=== PATIENT | male | born 1955 | race African-American/Black ===

== ENCOUNTER → 2019-09-07 | Day surgery (SDC) | payer OTHER, MEDICARE ==
[2019-09-03 13:35] LABS: BASOPHILS # (AUTO) 0.1 (0.0-0.1); BASOPHILS % 1.1 % (0.0-1.0); EOSINOPHILS # (AUTO) 0.2 (0.0-0.4); EOSINOPHILS % 4.3 % (0.0-6.0); HEMATOCRIT 43.2 % (38.2-49.6); HEMOGLOBIN 14.4 g/dL (14.0-18.0); LYMPHOCYTES # (AUTO) 3.2 (1.0-3.2); LYMPHOCYTES % 60.1 % (18.0-39.1); MEAN CORPUSCULAR HEMOGLOBIN 26.9 pg (28-32); MEAN CORPUSCULAR HGB CONC 33.3 g/dL (31-35); MEAN CORPUSCULAR VOLUME 80.6 fL (81-99); MONOCYTES # (AUTO) 0.5 (0.2-0.8); MONOCYTES % 9.6 % (4.4-11.3); NEUTROPHILS # (AUTO) 1.3 (2.1-6.9); NEUTROPHILS % 24.9 % (38.7-80.0); PLATELET COUNT 212 x10e3/uL (140-360); RED BLOOD COUNT 5.36 x10e6/uL (4.3-5.7); RED CELL DISTRIBUTION WIDTH 14.5 % (11.7-14.4)
[2019-09-03 13:42] LABS: INR 0.92; PROTHROMBIN TIME 12.9 seconds (11.9-14.5)
[2019-09-03 13:43] LABS: PARTIAL THROMBOPLASTIN TIME 27.5 seconds (23.8-35.5)
[2019-09-03 13:50] LABS: ALANINE AMINOTRANSFERASE 42 IU/L (0-55); ALBUMIN 4.1 g/dL (3.5-5.0); ALBUMIN/GLOBULIN RATIO 1.1 (0.8-2.0); ALKALINE PHOSPHATASE 54 IU/L (40-150); ANION GAP 10.1 mmol/L (8-16); BLOOD UREA NITROGEN 18 mg/dL (7-26); BUN/CREATININE RATIO 16 (6-25); CALCIUM 9.8 mg/dL (8.4-10.2); CARBON DIOXIDE 30 mmol/L (22-29); CHLORIDE 103 mmol/L (98-107); CREATININE, SERUM 1.13 mg/dL (0.72-1.25); EST GLOMERULAR FILTRATION RATE > 60 ML/MIN (60-); GLUCOSE 107 mg/dL (74-118); POTASSIUM 4.1 mmol/L (3.5-5.1); SODIUM 139 mmol/L (136-145)
--- NOTE | 2019-09-03 14:00 | Diagnostic Imaging Report ---
Chest, PA and lateral. History: Preoperative evaluation for left foot surgery. Comparison: None available. Discussion: The cardiomediastinal silhouette and pulmonary vasculature are within normal limits. The lungs are clear without evidence of consolidation or effusion. There are no acute osseous abnormalities. IMPRESSION: No radiographic evidence of acute cardiopulmonary abnormality. Signed by: Bernard Hagen MD on 09/03/2019 1:57 PM
[~2019-09-07] MED LIST: BETAMETHASONE DISODIUM PHOS 6 MG/ML VIAL ONE; BUPIVACAINE HCL 0.5% INJ 30 ML VIAL INJ ONE; CEFAZOLIN SOD 1 GM/NS 50ML 100 ML IV ONE; DEXAMETHASONE SOD PHOS INJ 4 MG/ML VIAL ONE; DIOVAN160 MG PO; FENTANYL CITRATE/PF 100MCG/2 ML INJ ONE; KETOROLAC TROMETHAMINE 30 MG/ML VIAL ONE; LIDOCAINE HCL 1% LOCAL INJ 20 ML VIAL ONE; LIDOCAINE HCL 2% LOCAL INJ 5 ML SDV VIAL INJ ONE; MIDAZOLAM HCL 2 MG/2 ML VIAL ONE; MUPIROCIN 2% OINT 22 GM TUBE ONE; ONDANSETRON HCL INJ 2MG/ML 2ML 2 MG/ML VIAL ONE; PROPOFOL IV EMULSION 10 MG/ML 20 ML VIAL ONE; SEVOFLURANE INHAL SOLN 250 ML PEN BTL ONE
--- OUTSIDE RECORDS SUMMARY | 2019-09-07 05:22 | XMS REPORT ---
[facility] Address Unknown Phone Unavailable Care Team Providers Care Salon Leader Name Role Phone SOLITARIO HERR Unavailable Unavailable KATHY MARCELO Unavailable Unavailable Problems This patient has no known problems. Allergies, Adverse Reactions, Alerts This patient has no known allergies or adverse reactions. Medications This patient has no known medications. Results Test Description Test Time Test Comments Text Results Atomic Results Result Comments CHEST 2 VIEWS 2019-09-03 13:56:00 [place] [address] Patient Name: VIDHI GALICIA MR #: [id number] : 1955 Age/Sex: 64/M Req #: [id number] Adm Physician: Ordered by: SOLITARIO HERR DPM Report #: [id number] Location: OR Room/Bed: Procedure: [id number] DX/CHEST 2 VIEWS Exam Date: 09/03/19 Exam Time: 1325 REPORT STATUS: Signed Chest, PA and lateral. History: Preoperative evaluation for left foot surgery. Comparison: None available. Discussion: The cardiomediastinal silhouette and pulmonary vasculature are within normal limits. The lungs are clear without evidence of consolidation or effusion. There are no acute osseous abnormalities. IMPRESSION: No radiographic evidence of acute cardiopulmonary abnormality. Signed by: Bernard Linton MD on 09/03/2019 1:57 PM Dictated By: BERNARD LINTON MD [id number] Transcribed By: BRIDGETT on 09/03/19 1357 COPY TO: SOLITARIO HERR DPM POCT-GLUCOSE METER 2017-08-04 12:31:00 POC-GLUCOSE METER (BEAKER) (test stzq=7081) 108 mg/dL 70-[address] [facility] [address] [facility] [address] POCT-GLUCOSE [id number] 08:09:00* Test Item Value Reference Range Comments POC-GLUCOSE METER (BEAKER) (test dnwx=0622) 126 mg/dL 70-[address] [facility] [address] [facility] [address] RAD, CHEST, 1 VIEW, NON [id number] 07:49:00while patient is intubated or has chest tubes.Reason for exam:->s/p CT surgeryShould this be performed at the bedside?->YesFINAL REPORT HISTORY : s/p CT surgery. Comparison: 08/03/2017 Comment: Single portable view of the chest was obtained. The cardiac silhouette size is enlarged. Support lines and tubes are unchanged. No pneumothorax is seen. There is some mild pulmonary venous congestion. Interstitial prominence may represent interstitial edema. There is elevation of the right hemidiaphragm. There is a small right-sided pleural effusion. Linear density in the right midlung most likely represents linear subsegmental atelectasis versus scarring. Superimposed pneumonitis cannot be entirely excluded. Close follow-up is recommended. An arc-like radiodensity is seen over the heart. Findings should be correlated with the patient's procedural history. Signed: Radha Palacios MDReport Verified Date/Time: 08/04/2017 07:49:21 Reading Location: [facility] Diagnostic Imaging Reading Room - [place] [id number] C METABOLIC [id number] 05:41:00* Test Item Value Reference Range Comments SODIUM (BEAKER) (test hwbn=477) 137 meq/L 136-145 POTASSIUM (BEAKER) (test xgnh=618) 4.0 meq/L 3.5-5.1 CHLORIDE (BEAKER) (test juiw=658) 105 meq/L 98-107 CO2 (BEAKER) (test urbc=612) 24 meq/L 22-29 BLOOD UREA NITROGEN (BEAKER) (test lnqa=675) 20 mg/dL 7-21 CREATININE (BEAKER) (test nfdr=009) 0.79 mg/dL 0.57-1.25 GLUCOSE RANDOM (BEAKER) (test svlx=550) 111 mg/dL 70-105 CALCIUM (BEAKER) (test ednx=965) 8.4 mg/dL 8.4-10.2 EGFR (BEAKER) (test dcyr=7379) 120 mL/min/1.73 sq m ESTIMATED GFR IS NOT ACCURATE CREATININE CLEARANCE IN PREDICTING GLOMERULAR FILTRATION RATE. ESTIMATED GFR IS NOT APPLICABLE FOR DIALYSIS PATIENTS. CBC W/PLT COUNT & AUTO [id number] 04:59:00* Test Item Value Reference Range Comments WHITE BLOOD CELL COUNT (BEAKER) (test zrwq=728) 9.6 K/ L 3.5-10.5 RED BLOOD CELL COUNT (BEAKER) (test wjyx=286) 4.05 M/ L 4.63-6.08 HEMOGLOBIN (BEAKER) (test tujw=107) 10.7 GM/DL 13.7-17.5 HEMATOCRIT (BEAKER) (test qido=412) 33.1 % 40.1-51.0 MEAN CORPUSCULAR VOLUME (BEAKER) (test bxul=859) 81.7 fL 79.0-92.2 MEAN CORPUSCULAR HEMOGLOBIN (BEAKER) (test ameo=029) 26.4 pg 25.7-32.2 MEAN CORPUSCULAR HEMOGLOBIN CONC (BEAKER) (test cysn=367) 32.3 GM/DL 32.3-36.5 RED CELL DISTRIBUTION WIDTH (BEAKER) (test diot=135) 14.9 % 11.6-14.4 PLATELET COUNT (BEAKER) (test tqsz=746) 127 K/CU MM 150-450 MEAN PLATELET VOLUME (BEAKER) (test jmgy=522) 11.1 fL 9.4-12.4 NUCLEATED RED BLOOD CELLS (BEAKER) (test ywxn=244) 0 /100 WBC 0-0 NEUTROPHILS RELATIVE PERCENT (BEAKER) (test jbsa=762) 66 % LYMPHOCYTES RELATIVE PERCENT (BEAKER) (test zbpp=491) 22 % MONOCYTES RELATIVE PERCENT (BEAKER) (test wcnp=191) 11 % EOSINOPHILS RELATIVE PERCENT (BEAKER) (test gner=739) 1 % BASOPHILS RELATIVE PERCENT (BEAKER) (test itgi=845) 0 % NEUTROPHILS ABSOLUTE COUNT (BEAKER) (test kqcu=680) 6.38 K/ L 1.78-5.38 LYMPHOCYTES ABSOLUTE COUNT (BEAKER) (test mvgu=545) 2.10 K/ L 1.32-3.57 MONOCYTES ABSOLUTE COUNT (BEAKER) (test qmqx=398) 1.01 K/ L 0.30-0.82 EOSINOPHILS ABSOLUTE COUNT (BEAKER) (test hbsf=660) 0.07 K/ L 0.04-0.54 BASOPHILS ABSOLUTE COUNT (BEAKER) (test knqb=060) 0.02 K/ L 0.01-0.08 IMMATURE GRANULOCYTES-RELATIVE PERCENT (BEAKER) (test cnec=4760) 0 % 0-1 BASIC METABOLIC [id number] 07:47:00* Test Item Value Reference Range Comments SODIUM (BEAKER) (test idqk=135) 140 meq/L 136-145 POTASSIUM (BEAKER) (test drli=454) 4.6 meq/L 3.5-5.1 CHLORIDE (BEAKER) (test datd=831) 106 meq/L 98-107 CO2 (BEAKER) (test kehn=683) 28 meq/L 22-29 BLOOD UREA NITROGEN (BEAKER) (test ridg=681) 22 mg/dL 7-21 CREATININE (BEAKER) (test wwdn=873) 0.82 mg/dL 0.57-1.25 GLUCOSE RANDOM (BEAKER) (test urot=457) 130 mg/dL 70-105 CALCIUM (BEAKER) (test plrz=067) 8.6 mg/dL 8.4-10.2 EGFR (BEAKER) (test ffze=5975) 115 mL/min/1.73 sq m ESTIMATED GFR IS NOT ACCURATE CREATININE CLEARANCE IN PREDICTING GLOMERULAR FILTRATION RATE. ESTIMATED GFR IS NOT APPLICABLE FOR DIALYSIS PATIENTS. CBC W/PLT COUNT & AUTO [id number] 07:09:00* Test Item Value Reference Range Comments WHITE BLOOD CELL COUNT (BEAKER) (test eofb=038) 10.7 K/ L 3.5-10.5 RED BLOOD CELL COUNT (BEAKER) (test wtoo=405) 4.11 M/ L 4.63-6.08 HEMOGLOBIN (BEAKER) (test wzkx=920) 10.9 GM/DL 13.7-17.5 HEMATOCRIT (BEAKER) (test zxbv=745) 33.6 % 40.1-51.0 MEAN CORPUSCULAR VOLUME (BEAKER) (test ahzm=913) 81.8 fL 79.0-92.2 MEAN CORPUSCULAR HEMOGLOBIN (BEAKER) (test laft=499) 26.5 pg 25.7-32.2 MEAN CORPUSCULAR HEMOGLOBIN CONC (BEAKER) (test vtuo=715) 32.4 GM/DL 32.3-36.5 RED CELL DISTRIBUTION WIDTH (BEAKER) (test sfvn=426) 15.4 % 11.6-14.4 PLATELET COUNT (BEAKER) (test cpct=322) 99 K/CU MM 150-450 MEAN PLATELET VOLUME (BEAKER) (test zuyh=478) 10.4 fL 9.4-12.4 NUCLEATED RED BLOOD CELLS (BEAKER) (test bxuo=804) 0 /100 WBC 0-0 NEUTROPHILS RELATIVE PERCENT (BEAKER) (test fbko=811) 75 % LYMPHOCYTES RELATIVE PERCENT (BEAKER) (test hdzl=940) 15 % MONOCYTES RELATIVE PERCENT (BEAKER) (test ohnh=221) 10 % EOSINOPHILS RELATIVE PERCENT (BEAKER) (test xmsf=249) 0 % BASOPHILS RELATIVE PERCENT (BEAKER) (test fxkl=228) 0 % NEUTROPHILS ABSOLUTE COUNT (BEAKER) (test tqii=929) 7.93 K/ L 1.78-5.38 LYMPHOCYTES ABSOLUTE COUNT (BEAKER) (test egir=511) 1.56 K/ L 1.32-3.57 MONOCYTES ABSOLUTE COUNT (BEAKER) (test ukjh=219) 1.09 K/ L 0.30-0.82 EOSINOPHILS ABSOLUTE COUNT (BEAKER) (test kpna=804) 0.00 K/ L 0.04-0.54 BASOPHILS ABSOLUTE COUNT (BEAKER) (test ymbb=745) 0.01 K/ L 0.01-0.08 IMMATURE GRANULOCYTES-RELATIVE PERCENT (BEAKER) (test kcqf=9123) 1 % 0-1 RAD, CHEST, 1 VIEW, NON [id number] 03:58:00while patient is intubated or has chest tubes.Reason for exam:->s/p CT surgeryShould this be performed at the bedside?->YesFINAL REPORT RAD, CHEST, 1 VIEW, NON DEPT INDICATION: s/p CT surgery COMPARISON: Prior day's exam FINDINGS: Portable frontal view of the chest. IMPRESSION: Support Lines: Right IJ approach Rowdy- Carlos central venous catheter has been removed. Thoracic drainage catheters are stable. Lungs and pleura: Scattered subsegmental atelectasis again noted. Trace basilar right pneumothorax.Heart and mediastinum: Stable enlargement of the cardiac silhouette. Valvular surgical changes again noted.Additional findings: None. Signed: JR Murray Robert MDReport Verified Date/Time: 08/03/2017 03:58:50 Reading Location: [address] Reading Room , CHEST, 1 VIEW, NON [id number] 05:36:00while patient is intubated or has chest tubes.Reason for exam:->s/p CT surgeryShould this be performed at the bedside?->YesFINAL REPORT Chest one view. Clinical history: s/p CT surgery Comparison: Chest radiograph 08/01/2017 to 30 3:00 PM Technique: A single frontal view of the chest was obtained. Findings/Impression:There has been interval removal of endotracheal and feeding tubes. There is a right IJ Rowdy-Carlos catheter with tip in the left pulmonary artery. There is a tube or drain overlying the right medial lung base. The heart is enlarged. The aorta is uncoiled. There are low lung volumes. There is discoid atelectasis in the right midlung, left upper lobe and left lower lobe. There is no focal pulmonary consolidation or definite pleural effusion. There is no pneumothorax. Signed: Isabella Reynoso Verified Date/Time: 08/02/2017 05:36:43 Reading Location: [facility] C013[facility] Reading Room C METABOLIC [id number] 05:08:00* Test Item Value Reference Range Comments SODIUM (BEAKER) (test cvnp=637) 140 meq/L 136-145 POTASSIUM (BEAKER) (test ztwy=948) 4.0 meq/L 3.5-5.1 CHLORIDE (BEAKER) (test zrso=794) 107 meq/L 98-107 CO2 (BEAKER) (test krvl=604) 23 meq/L 22-29 BLOOD UREA NITROGEN (BEAKER) (test thfu=209) 21 mg/dL 7-21 CREATININE (BEAKER) (test tvjx=460) 0.99 mg/dL 0.57-1.25 GLUCOSE RANDOM (BEAKER) (test kcuc=204) 153 mg/dL 70-105 CALCIUM (BEAKER) (test fjwu=789) 8.4 mg/dL 8.4-10.2 EGFR (BEAKER) (test ccgs=5493) 92 mL/min/1.73 sq m ESTIMATED GFR IS NOT ACCURATE CREATININE CLEARANCE IN PREDICTING GLOMERULAR FILTRATION RATE. ESTIMATED GFR IS NOT APPLICABLE FOR DIALYSIS PATIENTS. [id number] 04:53:00* Test Item Value Reference Range Comments MAGNESIUM (BEAKER) (test gdoj=269) 2.1 mg/dL 1.6-2.6 OXYGEN SATURATION, [id number] 04:25:00* Test Item Value Reference Range Comments O2 SATURATION (MEASURED) (BEAKER) (test zlzb=4485) 69.2 % CBC W/PLT COUNT & AUTO [id number] 04:17:00* Test Item Value Reference Range Comments WHITE BLOOD CELL COUNT (BEAKER) (test acmm=608) 10.9 K/ L 3.5-10.5 RED BLOOD CELL COUNT (BEAKER) (test bdkx=256) 4.10 M/ L 4.63-6.08 HEMOGLOBIN (BEAKER) (test bxpw=013) 11.0 GM/DL 13.7-17.5 HEMATOCRIT (BEAKER) (test mqyp=100) 33.6 % 40.1-51.0 MEAN CORPUSCULAR VOLUME (BEAKER) (test neib=488) 82.0 fL 79.0-92.2 MEAN CORPUSCULAR HEMOGLOBIN (BEAKER) (test gssl=123) 26.8 pg 25.7-32.2 MEAN CORPUSCULAR HEMOGLOBIN CONC (BEAKER) (test povq=707) 32.7 GM/DL 32.3-36.5 RED CELL DISTRIBUTION WIDTH (BEAKER) (test ltxi=292) 15.3 % 11.6-14.4 PLATELET COUNT (BEAKER) (test euwi=123) 106 K/CU MM 150-450 MEAN PLATELET VOLUME (BEAKER) (test boog=417) 10.3 fL 9.4-12.4 NUCLEATED RED BLOOD CELLS (BEAKER) (test wsiy=372) 0 /100 WBC 0-0 NEUTROPHILS RELATIVE PERCENT (BEAKER) (test tstt=478) 79 % LYMPHOCYTES RELATIVE PERCENT (BEAKER) (test xmhu=191) 11 % MONOCYTES RELATIVE PERCENT (BEAKER) (test xcrq=520) 10 % EOSINOPHILS RELATIVE PERCENT (BEAKER) (test vtqr=381) 0 % BASOPHILS RELATIVE PERCENT (BEAKER) (test oxoh=019) 0 % NEUTROPHILS ABSOLUTE COUNT (BEAKER) (test poms=857) 8.64 K/ L 1.78-5.38 LYMPHOCYTES ABSOLUTE COUNT (BEAKER) (test kfcn=061) 1.15 K/ L 1.32-3.57 MONOCYTES ABSOLUTE COUNT (BEAKER) (test czao=891) 1.10 K/ L 0.30-0.82 EOSINOPHILS ABSOLUTE COUNT (BEAKER) (test fhov=319) 0.00 K/ L 0.04-0.54 BASOPHILS ABSOLUTE COUNT (BEAKER) (test dnkw=559) 0.01 K/ L 0.01-0.08 IMMATURE GRANULOCYTES-RELATIVE PERCENT (BEAKER) (test vtxy=8561) 0 % 0-1 CALCIUM, [id number] 16:03:00* Test Item Value Reference Range Comments CALCIUM IONIZED (BEAKER) (test tvhd=974) 0.89 mmol/L 1.12-1.27 PH, BLOOD (BEAKER) (test myfy=1153) 7.42 BLOOD GAS, [id number] 16:03:00* Test Item Value Reference Range Comments PH ARTERIAL (BEAKER) (test nsyk=527) 7.40 7.35-7.45 PCO2 ARTERIAL (BEAKER) (test nrgn=595) 42 mmHg 35-45 PO2 ARTERIAL (BEAKER) (test otkq=279) 149 mmHg 80-90 O2 SATURATION ARTERIAL (BEAKER) (test hktr=683) 98.8 % 96.0-97.0 HCO3 ARTERIAL (BEAKER) (test qqlq=529) 25 mmol/L 21-29 BASE EXCESS ARTERIAL (BEAKER) (test cmiw=393) 0.5 mmol/L -2.0-3.0 PATIENT TEMPERATURE (BEAKER) (test ulpn=8084) 38.3 C FIO2 (BEAKER) (test erfq=9194) 40.0 % GLUCOSE-STAT [id number] 16:03:00* Test Item Value Reference Range Comments GLUCOSE RANDOM (BEAKER) (test sfma=001) 161 mg/dL 70-110 HGB/HCT (H&H) - STAT [id number] 16:03:00* Test Item Value Reference Range Comments HEMOGLOBIN (BEAKER) (test ujky=160) 12.5 g/dL 13.0-16.8 HEMATOCRIT (BEAKER) (test bpgo=989) 37.0 % 40.0-50.0 SODIUM NA-STAT [id number] 16:02:00* Test Item Value Reference Range Comments SODIUM (BEAKER) (test kbzv=791) 139 meq/L 135-148 POTASSIUM-STAT [id number] 16:02:00* Test Item Value Reference Range Comments POTASSIUM (BEAKER) (test czsv=504) 4.8 meq/L 3.6-5.5 RAD, CHEST, 1 VIEW, NON [id number] 15:20:00Reason for exam:-> intubationShould this be performed at the bedside?->YesFINAL REPORT Chest One view: Reason for exam: Intubation Comparison Study: Chest x- ray, yesterday Discussion: An ET tube is identified with tip 4 cm above the rjei. A right IJ Rowdy-Carlos catheter is noted with tip in the proximal left pulmonary artery. Drains/thoracostomy tubes are present along with a nasogastric tube. Scattered subsegmental atelectasis is seen. There is no pleural effusion or pneumothorax. The cardiac silhouette is slightly enlarged. Impression: Support lines, described above. No pneumothorax. Signed: Emmanuel Lilly MDReport Verified Date/Time: 08/01/2017 15:20:44 Reading Location: [address] Consult Reading Room C METABOLIC [id number] 14:14:00* Test Item Value Reference Range Comments SODIUM (BEAKER) (test yedp=610) 140 meq/L 136-145 POTASSIUM (BEAKER) (test cdlv=469) 4.8 meq/L 3.5-5.1 Specimen slightly hemolyzed CHLORIDE (BEAKER) (test obvm=966) 108 meq/L 98-107 CO2 (BEAKER) (test hrjt=963) 21 meq/L 22-29 BLOOD UREA NITROGEN (BEAKER) (test iibn=896) 19 mg/dL 7-21 CREATININE (BEAKER) (test yaps=225) 1.16 mg/dL 0.57-1.25 Specimen slightly hemolyzed GLUCOSE RANDOM (BEAKER) (test wfat=508) 137 mg/dL 70-105 CALCIUM (BEAKER) (test yzmo=664) 7.9 mg/dL 8.4-10.2 EGFR (BEAKER) (test uown=9392) 77 mL/min/1.73 sq m ESTIMATED GFR IS NOT ACCURATE CREATININE CLEARANCE IN PREDICTING GLOMERULAR FILTRATION RATE. ESTIMATED GFR IS NOT APPLICABLE FOR DIALYSIS PATIENTS. [id number] 14:10:00* Test Item Value Reference Range Comments PROTIME (BEAKER) (test bhda=631) 16.6 seconds 11.7-14.7 INR (BEAKER) (test gtps=866) 1.3 <=5.9 PARTIAL THROMBOPLASTIN TIME (BEAKER) (test ipah=297) 31.2 seconds 22.5-36.0 RECOMMENDED COUMADIN/WARFARIN INR THERAPY RANGESSTANDARD DOSE: 2.0 - 3.0 Inclu angela: PROPHYLAXIS for venous thrombosis, systemic embolization; TREATMENT for jose juan ous thrombosis and/or pulmonary embolus.HIGH RISK: Target INR is 2.5-3.5 for pat ients with mechanical heart valves.CBC W/PLT COUNT & AUTO [id number] 14:05:00* Test Item Value Reference Range Comments WHITE BLOOD CELL COUNT (BEAKER) (test ehyo=198) 11.2 K/ L 3.5-10.5 RED BLOOD CELL COUNT (BEAKER) (test fhby=207) 4.18 M/ L 4.63-6.08 HEMOGLOBIN (BEAKER) (test wyjv=021) 11.3 GM/DL 13.7-17.5 HEMATOCRIT (BEAKER) (test afbx=666) 34.0 % 40.1-51.0 MEAN CORPUSCULAR VOLUME (BEAKER) (test xqva=026) 81.3 fL 79.0-92.2 MEAN CORPUSCULAR HEMOGLOBIN (BEAKER) (test oyvt=791) 27.0 pg 25.7-32.2 MEAN CORPUSCULAR HEMOGLOBIN CONC (BEAKER) (test phdj=444) 33.2 GM/DL 32.3-36.5 RED CELL DISTRIBUTION WIDTH (BEAKER) (test lies=054) 15.0 % 11.6-14.4 PLATELET COUNT (BEAKER) (test ysxo=128) 121 K/CU MM 150-450 MEAN PLATELET VOLUME (BEAKER) (test viyk=600) 10.2 fL 9.4-12.4 NUCLEATED RED BLOOD CELLS (BEAKER) (test sski=878) 0 /100 WBC 0-0 NEUTROPHILS RELATIVE PERCENT (BEAKER) (test adzf=028) 75 % LYMPHOCYTES RELATIVE PERCENT (BEAKER) (test oekx=822) 15 % MONOCYTES RELATIVE PERCENT (BEAKER) (test xeew=840) 10 % EOSINOPHILS RELATIVE PERCENT (BEAKER) (test geda=041) 1 % BASOPHILS RELATIVE PERCENT (BEAKER) (test oncl=512) 0 % NEUTROPHILS ABSOLUTE COUNT (BEAKER) (test zkjq=549) 8.34 K/ L 1.78-5.38 LYMPHOCYTES ABSOLUTE COUNT (BEAKER) (test zbda=945) 1.62 K/ L 1.32-3.57 MONOCYTES ABSOLUTE COUNT (BEAKER) (test jowi=245) 1.08 K/ L 0.30-0.82 EOSINOPHILS ABSOLUTE COUNT (BEAKER) (test cgic=453) 0.06 K/ L 0.04-0.54 BASOPHILS ABSOLUTE COUNT (BEAKER) (test yczw=208) 0.03 K/ L 0.01-0.08 IMMATURE GRANULOCYTES-RELATIVE PERCENT (BEAKER) (test hshu=1758) 1 % 0-1 OXYGEN SATURATION, [id number] 13:51:00* Test Item Value Reference Range Comments O2 SATURATION (MEASURED) (BEAKER) (test fsgu=0104) 65.9 % SODIUM NA-STAT [id number] 13:20:00* Test Item Value Reference Range Comments SODIUM (BEAKER) (test qeol=775) 138 meq/L 135-148 POTASSIUM-STAT [id number] 13:20:00* Test Item Value Reference Range Comments POTASSIUM (BEAKER) (test lets=070) 4.5 meq/L 3.6-5.5 BLOOD GAS, [id number] 13:20:00* Test Item Value Reference Range Comments PH ARTERIAL (BEAKER) (test xnfm=284) 7.38 7.35-7.45 PCO2 ARTERIAL (BEAKER) (test jppz=441) 43 mmHg 35-45 PO2 ARTERIAL (BEAKER) (test uiou=097) 169 mmHg 80-90 O2 SATURATION ARTERIAL (BEAKER) (test pqli=924) 99.1 % 96.0-97.0 HCO3 ARTERIAL (BEAKER) (test ezkk=858) 25 mmol/L 21-29 BASE EXCESS ARTERIAL (BEAKER) (test xdja=819) -0.2 mmol/L -2.0-3.0 PATIENT TEMPERATURE (BEAKER) (test vuvm=3583) 36.8 C FIO2 (BEAKER) (test aeur=1005) 60.0 % GLUCOSE-STAT [id number] 13:20:00* Test Item Value Reference Range Comments GLUCOSE RANDOM (BEAKER) (test mmct=975) 135 mg/dL 70-110 HGB/HCT (H&H) - STAT [id number] 13:20:00* Test Item Value Reference Range Comments HEMOGLOBIN (BEAKER) (test aooh=640) 12.0 g/dL 13.0-16.8 HEMATOCRIT (BEAKER) (test iwzh=232) 35.0 % 40.0-50.0 CALCIUM, [id number] 13:20:00* Test Item Value Reference Range Comments CALCIUM IONIZED (BEAKER) (test wdzt=145) 1.05 mmol/L 1.12-1.27 PH, BLOOD (BEAKER) (test menn=6822) 7.38 [id number] 12:33:00* Test Item Value Reference Range Comments ACTIVATED CLOTTING TIME (BEAKER) (test wsez=992) [address] [facility] [address] [facility] [address] [id number] 12:33:00* Test Item Value Reference Range Comments ACTIVATED CLOTTING TIME (BEAKER) (test zmov=814) 362 sec TESTED AT [place] [address] [id number] 12:33:00* Test Item Value Reference Range Comments ACTIVATED CLOTTING TIME (BEAKER) (test rnfl=244) 455 sec TESTED AT [place] [address] [id number] 12:33:00* Test Item Value Reference Range Comments ACTIVATED CLOTTING TIME (BEAKER) (test bfoh=639) 472 sec TESTED AT [place] [address] [id number] 12:33:00* Test Item Value Reference Range Comments ACTIVATED CLOTTING TIME (BEAKER) (test jufe=552) 395 sec TESTED AT [place] [address] [id number] 12:33:00* Test Item Value Reference Range Comments ACTIVATED CLOTTING TIME (BEAKER) (test jrhz=245) 428 sec TESTED AT [place] [address] [id number] 12:33:00* Test Item Value Reference Range Comments ACTIVATED CLOTTING TIME (BEAKER) (test dzxl=116) > sec OUTSIDE MEASURING RANGETESTED AT [place] [address] BLOOD GAS, [id number] 11:55:00* Test Item Value Reference Range Comments PH ARTERIAL (BEAKER) (test otai=106) 7.36 7.35-7.45 PCO2 ARTERIAL (BEAKER) (test ropl=042) 42 mmHg 35-45 PO2 ARTERIAL (BEAKER) (test jdkj=753) 248 mmHg 80-90 O2 SATURATION ARTERIAL (BEAKER) (test appj=305) 99.5 % 96.0-97.0 HCO3 ARTERIAL (BEAKER) (test dwqe=212) 24 mmol/L 21-29 BASE EXCESS ARTERIAL (BEAKER) (test tfog=307) -2.1 mmol/L -2.0-3.0 PATIENT TEMPERATURE (BEAKER) (test xqha=0358) 36.0 C FIO2 (BEAKER) (test vgah=5429) 100.0 % GLUCOSE-STAT [id number] 11:55:00* Test Item Value Reference Range Comments GLUCOSE RANDOM (BEAKER) (test atst=476) 167 mg/dL 70-110 POTASSIUM-STAT [id number] 11:55:00* Test Item Value Reference Range Comments POTASSIUM (BEAKER) (test speb=629) 4.2 meq/L 3.6-5.5 HGB/HCT (H&H) - STAT [id number] 11:55:00* Test Item Value Reference Range Comments HEMOGLOBIN (BEAKER) (test oqum=756) 9.9 g/dL 13.0-16.8 HEMATOCRIT (BEAKER) (test ubdb=660) 29.0 % 40.0-50.0 CALCIUM, [id number] 11:55:00* Test Item Value Reference Range Comments CALCIUM IONIZED (BEAKER) (test flcx=378) 1.06 mmol/L 1.12-1.27 PH, BLOOD (BEAKER) (test isaw=7033) 7.35 SODIUM NA-STAT [id number] 11:54:00* Test Item Value Reference Range Comments SODIUM (BEAKER) (test gzic=735) 138 meq/L 135-148 POTASSIUM-STAT [id number] 10:34:00* Test Item Value Reference Range Comments POTASSIUM (BEAKER) (test vhjy=810) 6.2 meq/L 3.6-5.5 BLOOD GAS, [id number] 10:31:00* Test Item Value Reference Range Comments PH ARTERIAL (BEAKER) (test hmaf=980) 7.35 7.35-7.45 PCO2 ARTERIAL (BEAKER) (test xcic=630) 43 mmHg 35-45 PO2 ARTERIAL (BEAKER) (test oovb=477) 213 mmHg 80-90 O2 SATURATION ARTERIAL (BEAKER) (test uzfg=524) 99.4 % 96.0-97.0 HCO3 ARTERIAL (BEAKER) (test ntyb=328) 24 mmol/L 21-29 BASE EXCESS ARTERIAL (BEAKER) (test mpkd=907) -1.9 mmol/L -2.0-3.0 PATIENT TEMPERATURE (BEAKER) (test yzjp=2579) 34.0 C FIO2 (BEAKER) (test jzbm=5339) 65.0 % GLUCOSE-STAT [id number] 10:31:00* Test Item Value Reference Range Comments GLUCOSE RANDOM (BEAKER) (test pyvo=159) 168 mg/dL 70-110 SODIUM NA-STAT [id number] 10:31:00* Test Item Value Reference Range Comments SODIUM (BEAKER) (test gpsk=037) 133 meq/L 135-148 HGB/HCT (H&H) - STAT [id number] 10:31:00* Test Item Value Reference Range Comments HEMOGLOBIN (BEAKER) (test bhwh=906) 9.5 g/dL 13.0-16.8 HEMATOCRIT (BEAKER) (test ooms=524) 28.0 % 40.0-50.0 BLOOD GAS, [id number] 10:08:00* Test Item Value Reference Range Comments PH ARTERIAL (BEAKER) (test tpqw=690) 7.40 7.35-7.45 PCO2 ARTERIAL (BEAKER) (test ptwk=889) 40 mmHg 35-45 PO2 ARTERIAL (BEAKER) (test xrbh=573) 244 mmHg 80-90 O2 SATURATION ARTERIAL (BEAKER) (test utwt=376) 99.6 % 96.0-97.0 HCO3 ARTERIAL (BEAKER) (test pytr=431) 26 mmol/L 21-29 BASE EXCESS ARTERIAL (BEAKER) (test wccd=642) -0.3 mmol/L -2.0-3.0 PATIENT TEMPERATURE (BEAKER) (test jltx=2617) 33.0 C FIO2 (BEAKER) (test eccp=2408) 65.0 % SODIUM NA-STAT [id number] 10:08:00* Test Item Value Reference Range Comments SODIUM (BEAKER) (test ugnp=608) 133 meq/L 135-148 POTASSIUM-STAT [id number] 10:08:00* Test Item Value Reference Range Comments POTASSIUM (BEAKER) (test hxws=575) 5.7 meq/L 3.6-5.5 GLUCOSE-STAT [id number] 10:08:00* Test Item Value Reference Range Comments GLUCOSE RANDOM (BEAKER) (test dylt=555) 173 mg/dL 70-110 HGB/HCT (H&H) - STAT [id number] 10:08:00* Test Item Value Reference Range Comments HEMOGLOBIN (BEAKER) (test ykgn=145) 9.3 g/dL 13.0-16.8 HEMATOCRIT (BEAKER) (test mrlv=333) 27.0 % 40.0-50.0 BLOOD GAS, [id number] 09:33:00* Test Item Value Reference Range Comments PH ARTERIAL (BEAKER) (test chyq=482) 7.42 7.35-7.45 PCO2 ARTERIAL (BEAKER) (test wnjl=960) 38 mmHg 35-45 PO2 ARTERIAL (BEAKER) (test fsha=359) 260 mmHg 80-90 O2 SATURATION ARTERIAL (BEAKER) (test zakd=747) 99.6 % 96.0-97.0 HCO3 ARTERIAL (BEAKER) (test xmng=473) 25 mmol/L 21-29 BASE EXCESS ARTERIAL (BEAKER) (test vjnb=576) -0.1 mmol/L -2.0-3.0 PATIENT TEMPERATURE (BEAKER) (test kydn=2777) 33.0 C FIO2 (BEAKER) (test dmil=9917) 65.0 % GLUCOSE-STAT [id number] 09:33:00* Test Item Value Reference Range Comments GLUCOSE RANDOM (BEAKER) (test xnii=939) 155 mg/dL 70-110 HGB/HCT (H&H) - STAT [id number] 09:33:00* Test Item Value Reference Range Comments HEMOGLOBIN (BEAKER) (test derc=827) 9.8 g/dL 13.0-16.8 HEMATOCRIT (BEAKER) (test feyd=458) 29.0 % 40.0-50.0 SODIUM NA-STAT [id number] 09:33:00* Test Item Value Reference Range Comments SODIUM (BEAKER) (test tmyd=272) 134 meq/L 135-148 POTASSIUM-STAT [id number] 09:30:00* Test Item Value Reference Range Comments POTASSIUM (BEAKER) (test eogg=961) 4.9 meq/L 3.6-5.5 GLUCOSE-STAT [id number] 09:05:00* Test Item Value Reference Range Comments GLUCOSE RANDOM (BEAKER) (test gegz=004) 110 mg/dL 70-110 POTASSIUM-STAT [id number] 09:05:00* Test Item Value Reference Range Comments POTASSIUM (BEAKER) (test hbxt=595) 3.9 meq/L 3.6-5.5 SODIUM NA-STAT [id number] 09:05:00* Test Item Value Reference Range Comments SODIUM (BEAKER) (test iktx=765) 129 meq/L 135-148 HGB/HCT (H&H) - STAT [id number] 09:05:00* Test Item Value Reference Range Comments HEMOGLOBIN (BEAKER) (test yoif=501) 9.5 g/dL 13.0-16.8 HEMATOCRIT (BEAKER) (test dbmh=433) 28.0 % 40.0-50.0 BLOOD GAS, [id number] 09:05:00* Test Item Value Reference Range Comments PH ARTERIAL (BEAKER) (test aaoo=196) 7.39 7.35-7.45 PCO2 ARTERIAL (BEAKER) (test fezp=495) 38 mmHg 35-45 PO2 ARTERIAL (BEAKER) (test xowm=202) 356 mmHg 80-90 O2 SATURATION ARTERIAL (BEAKER) (test wxou=273) 99.8 % 96.0-97.0 HCO3 ARTERIAL (BEAKER) (test qiqw=535) 23 mmol/L 21-29 BASE EXCESS ARTERIAL (BEAKER) (test pwge=418) -2.1 mmol/L -2.0-3.0 PATIENT TEMPERATURE (BEAKER) (test spxe=9187) 35.0 C FIO2 (BEAKER) (test odxh=7727) 80.0 % GLUCOSE-STAT [id number] 08:01:00* Test Item Value Reference Range Comments GLUCOSE RANDOM (BEAKER) (test mvgw=146) 119 mg/dL 70-110 HGB/HCT (H&H) - STAT [id number] 08:01:00* Test Item Value Reference Range Comments HEMOGLOBIN (BEAKER) (test gziz=459) 12.6 g/dL 13.0-16.8 HEMATOCRIT (BEAKER) (test vdqk=650) 37.0 % 40.0-50.0 BLOOD GAS, [id number] 08:01:00* Test Item Value Reference Range Comments PH ARTERIAL (BEAKER) (test kuac=810) 7.48 7.35-7.45 PCO2 ARTERIAL (BEAKER) (test qved=480) 36 mmHg 35-45 PO2 ARTERIAL (BEAKER) (test hszp=081) 554 mmHg 80-90 O2 SATURATION ARTERIAL (BEAKER) (test ixjw=657) 99.9 % 96.0-97.0 HCO3 ARTERIAL (BEAKER) (test cigk=592) 27 mmol/L 21-29 BASE EXCESS ARTERIAL (BEAKER) (test hwsh=110) 2.9 mmol/L -2.0-3.0 PATIENT TEMPERATURE (BEAKER) (test fqyj=8860) 36.0 C FIO2 (BEAKER) (test cgej=8927) 100.0 % SODIUM NA-STAT [id number] 07:58:00* Test Item Value Reference Range Comments SODIUM (BEAKER) (test epzk=619) 137 meq/L 135-148 POTASSIUM-STAT [id number] 07:58:00* Test Item Value Reference Range Comments POTASSIUM (BEAKER) (test gygh=391) 3.7 meq/L 3.6-5.5 URINALYSIS W/ [id number] 17:58:00* Test Item Value Reference Range Comments COLOR (BEAKER) (test jaux=269) Yellow CLARITY (BEAKER) (test prno=412) Clear SPECIFIC GRAVITY UA (BEAKER) (test huom=554) 1.020 1.001-1.035 PH UA (BEAKER) (test diuf=535) 5.5 5.0-8.0 PROTEIN UA (BEAKER) (test vwdz=040) 10 mg/dL Negative GLUCOSE UA (BEAKER) (test prsd=839) Negative Negative KETONES UA (BEAKER) (test yeks=540) Negative Negative BILIRUBIN UA (BEAKER) (test hvdz=927) Negative Negative BLOOD UA (BEAKER) (test kqdu=664) Trace Negative NITRITE UA (BEAKER) (test kzkt=103) Negative Negative LEUKOCYTE ESTERASE UA (BEAKER) (test ebme=532) Negative Negative UROBILINOGEN UA (BEAKER) (test pels=431) 2.0 mg/dL 0.2-1.0 RBC UA (BEAKER) (test dgxv=808) 1 /HPF WBC UA (BEAKER) (test zdct=736) 1 /HPF BACTERIA (BEAKER) (test hwss=694) Rare MUCUS (BEAKER) (test bpgn=1573) Occasional SQUAMOUS EPITHELIAL (BEAKER) (test amsi=076) < /HPF SOURCE(BEAKER) (test ouhd=6644) BASIC METABOLIC [id number] 17:53:00* Test Item Value Reference Range Comments SODIUM (BEAKER) (test imsy=853) 142 meq/L 136-145 POTASSIUM (BEAKER) (test vyfo=317) 4.3 meq/L 3.5-5.1 CHLORIDE (BEAKER) (test kukl=030) 102 meq/L 98-107 CO2 (BEAKER) (test ypwt=025) 30 meq/L 22-29 BLOOD UREA NITROGEN (BEAKER) (test hvri=551) 19 mg/dL 7-21 CREATININE (BEAKER) (test wuua=897) 1.09 mg/dL 0.57-1.25 GLUCOSE RANDOM (BEAKER) (test xoeo=870) 96 mg/dL 70-105 CALCIUM (BEAKER) (test xnki=838) 9.8 mg/dL 8.4-10.2 EGFR (BEAKER) (test ecit=2965) 83 mL/min/1.73 sq m ESTIMATED GFR IS NOT ACCURATE CREATININE CLEARANCE IN PREDICTING GLOMERULAR FILTRATION RATE. ESTIMATED GFR IS NOT APPLICABLE FOR DIALYSIS PATIENTS. PROTHROMBIN TIME/[id number] 17:23:00* Test Item Value Reference Range Comments PROTIME (BEAKER) (test gxdo=261) 14.0 seconds 11.7-14.7 INR (BEAKER) (test mvyr=124) 1.1 <=5.9 RECOMMENDED COUMADIN/WARFARIN INR THERAPY RANGESSTANDARD DOSE: 2.0 - 3.0 Inclu angela: PROPHYLAXIS for venous thrombosis, systemic embolization; TREATMENT for jose juan ous thrombosis and/or pulmonary embolus.HIGH RISK: Target INR is 2.5-3.5 for pat ients with mechanical heart valves.[id number] 17:23:00* Test Item Value Reference Range Comments PARTIAL THROMBOPLASTIN TIME (BEAKER) (test iywp=979) 30.4 seconds 22.5-36.0 CBC W/PLT COUNT & AUTO [id number] 17:12:00* Test Item Value Reference Range Comments WHITE BLOOD CELL COUNT (BEAKER) (test ngos=777) 6.7 K/ L 3.5-10.5 RED BLOOD CELL COUNT (BEAKER) (test cfue=373) 5.21 M/ L 4.63-6.08 HEMOGLOBIN (BEAKER) (test imyk=686) 14.0 GM/DL 13.7-17.5 HEMATOCRIT (BEAKER) (test fxat=447) 42.9 % 40.1-51.0 MEAN CORPUSCULAR VOLUME (BEAKER) (test xbxx=627) 82.3 fL 79.0-92.2 MEAN CORPUSCULAR HEMOGLOBIN (BEAKER) (test anch=676) 26.9 pg 25.7-32.2 MEAN CORPUSCULAR HEMOGLOBIN CONC (BEAKER) (test mczn=021) 32.6 GM/DL 32.3-36.5 RED CELL DISTRIBUTION WIDTH (BEAKER) (test nwzv=544) 15.1 % 11.6-14.4 PLATELET COUNT (BEAKER) (test uyqr=251) 226 K/CU MM 150-450 MEAN PLATELET VOLUME (BEAKER) (test daqo=666) 10.8 fL 9.4-12.4 NUCLEATED RED BLOOD CELLS (BEAKER) (test jzrc=863) 0 /100 WBC 0-0 NEUTROPHILS RELATIVE PERCENT (BEAKER) (test xutp=271) 49 % LYMPHOCYTES RELATIVE PERCENT (BEAKER) (test misn=436) 38 % MONOCYTES RELATIVE PERCENT (BEAKER) (test qpcl=496) 8 % EOSINOPHILS RELATIVE PERCENT (BEAKER) (test zryr=202) 4 % BASOPHILS RELATIVE PERCENT (BEAKER) (test pwld=943) 1 % NEUTROPHILS ABSOLUTE COUNT (BEAKER) (test hugx=652) 3.27 K/ L 1.78-5.38 LYMPHOCYTES ABSOLUTE COUNT (BEAKER) (test paog=187) 2.51 K/ L 1.32-3.57 MONOCYTES ABSOLUTE COUNT (BEAKER) (test qpxt=614) 0.54 K/ L 0.30-0.82 EOSINOPHILS ABSOLUTE COUNT (BEAKER) (test dsyy=115) 0.28 K/ L 0.04-0.54 BASOPHILS ABSOLUTE COUNT (BEAKER) (test zhzy=868) 0.05 K/ L 0.01-0.08 IMMATURE GRANULOCYTES-RELATIVE PERCENT (BEAKER) (test eyqf=9837) 0 % 0-1 RAD, CHEST, 2 [id number] 17:11:00Reason for exam:->pre opFINAL REPORT Chest, PA and lateral. History: Preoperative. Comparison: None available. Discussion: The cardiomediastinal silhouette and pulmonary vasculature are within normal limits. The lungs are clear without ev idence of consolidation or effusion. There are no acute osseous abnormalities. The soft tissues are unremarkable. IMPRESSION: No acute cardiopulmonary abnorma lity. Signed: Roberto Harvey Verified Date/Time: 07/31/2017 17:11:28 Reading Location: [facility] B1 [id number] Consult Reading Room
--- OUTSIDE RECORDS SUMMARY | 2019-09-07 05:22 | XMS REPORT ---
Author Author Admin, [place] Organization [facility] Address Unknown Phone Unavailable Allergies, Adverse Reactions, Alerts Allergy Name Reaction Description Start Date Severity Status Provider No Known Allergies Arturo Thomas DDS Conditions or Problems Problem Name Problem Code Onset Date Status Entry Date Provider Comment Standard Description Annotate No Known Problems Arturo Thomas DDS Medication List Medication Instructions Start Date Stop Date Generic Name NDC Status Provider Patient Instruction AMOXICILLIN 500 MG ORAL CAPSULE 1 by mouth 3 times a day AMOXICILLIN 57357845791 Active Arturo Thomas DDS Active TYLENOL WITH CODEINE #3 300-30 MG ORAL TABLET 1 by mouth every 4 hours as needed ACETAMINOPHEN-CODEINE 65193735235 Active Arturo Velazquezley DDS Active Vital Signs Date Name Value Unit Range Description blood pressure, diastolic 94 mm[Hg] BP duarte blood pressure, systolic 149 mm[Hg] BP sys pulse rate E&M 75 /min Heart rate blood pressure, diastolic 92 mm[Hg] BP duarte blood pressure, systolic 146 mm[Hg] BP sys pulse rate E&M 80 /min Heart rate blood pressure, diastolic 74 mm[Hg] BP duarte blood pressure, systolic 117 mm[Hg] BP sys pulse rate E&M 88 /min Heart rate blood pressure, diastolic 103 mm[Hg] BP duarte blood pressure, systolic 141 mm[Hg] BP sys pulse rate E&M 87 /min Heart rate
--- NOTE | 2019-09-07 09:29 | Diagnostic Imaging Report ---
Exam: Left foot 2 views Clinical history: Status post surgery Findings: The patient is status post hallux valgus reduction with postoperative changes. 2 surgical screws are inserted into the distal shaft of the first metatarsal. Surgical pins are also inserted into the second, third, and fourth digits. The overall alignment appears anatomical. The remainder of the osseous structures demonstrate no evidence of acute fracture or malalignment. Impression: 1. Postoperative changes involving the first to fourth digits as described. Signed by: Dr. Rick Ng MD on 09/07/2019 9:27 AM
[2019-09-07 09:55] VITALS: BP 139/89
--- NOTE | 2019-09-07 16:02 | Operative Report ---
DATE OF PROCEDURE: 09/07/2019 SURGEON: Carlos Hinojosa DPM PREOPERATIVE DIAGNOSES: 1. Painful hallux valgus deformity, left foot. 2. Painful contracted hammertoe, 2nd digit, left. 3. Painful contracted hammertoe, 3rd digit, left. 4. Painful contracted hammertoe, 4th digit, left. 5. Painful contracted hammertoe, 5th digit, left. 6. Painful plantar fasciitis, left foot. POSTOPERATIVE DIAGNOSES: Confirmed. OPERATIVE PROCEDURES: 1. Dioni bunionectomy with screw fixation, left foot. 2. Arthroplasty of 2nd with K-wire fixation. 3. Arthroplasty of 3rd with K-wire fixation. 4. Arthroplasty of 4th with K-wire fixation. 5. Arthroplasty of 5th. 6. Endoscopic plantar fasciotomy. 7. Trigger point shot of cortisone. 8. Intraoperative use of fluoroscopy. 9. Application of posterior splint. ANESTHESIA: General. HEMOSTASIS: Pneumatic thigh tourniquet at 350 mmHg. PROCEDURE IN DETAIL: The patient was taken into the operating room and placed on the operative table in supine position. Following induction of general anesthesia by the anesthesiologist, Webril wraps were placed on the patient's left thigh, followed by application of a left thigh tourniquet. The left lower extremity was then prepped and draped in the usual aseptic manner and following procedures were then performed: Procedure #1: Dioni bunionectomy with screw fixation, left foot. Attention was directed to the dorsal medial aspect of the 1st MPJ, where a 6 cm linear incision was performed. Incision was deepened down to the joint capsule. Longitudinal capsulotomy was then performed exposing the dorsal medial exostosis of the 1st metatarsal head. Via the use of an oscillating saw, dorsal medial exostosis was excised from the operation site in toto. A V-osteotomy was then performed from medial to lateral. Capital fragment was then transpositioned laterally upon adequate surgical and anatomic reduction utilizing proper AO technique. A 2.0, 14 mm cortical screw x2 was used to achieve stability of osteotomy site. All redundant bone medially was excised via the use of an oscillating saw and rotating bur. Procedures 2 through 5: Arthroplasty of 2nd through 5th with K-wire fixation 2nd through 4th. Attention was then directed to the dorsal aspect of the above-mentioned toes, where a 3 cm linear incision was performed. Incision was deepened down to the joint capsule. Transverse capsulotomy was then performed exposing the head of the proximal phalanxes. Via the use of an oscillating saw, head of the proximal phalanxes were excised from the operation site in toto. Second through 4th toes were still noted to be contracted, so a 0.045 K-wire was introduced up to metatarsophalangeal joint to achieve proper anatomic reduction. Procedure #6: Endoscopic plantar fasciotomy, left foot. Attention was then directed to the plantar aspect of the left heel, where 2 stab incisions were performed, 5 cm from the posterior aspect and 2 cm from the plantar aspect of the heel. Then, a cannula was introduced from the medial portal to the lateral and the camera was inserted to the lateral portal of the cannula. The plantar fascia was then clearly visualized and medial one-third of the plantar fascia was then cut utilizing a triangle knife and a medial plantar fascia release was felt following the cutting of the plantar fascia. All areas were then copiously flushed with sterile antibiotic solution and suction. Closure was then obtained utilizing 3-0 Vicryl, 4-0 Vicryl, and 4-0 nylon for capsule, subcutaneous tissue, and skin respectively. Procedure #7: Intraoperative use of fluoroscopy was then used to make sure proper alignment and fixation was achieved. Procedure #8: Trigger point shot of cortisone was then given to the 1st and 4th interspace of the left foot. Then, approximately 15 to 20 mL of 0.5% plain Marcaine plus 10 mL of 1% Xylocaine plain were used to achieve local anesthesia of above-mentioned surgical area. Sterile dressing was applied. Upon release of thigh tourniquet, blood hyperemia was noted immediate to all digits of the patient's left foot. Procedure #9: Application of posterior splint. A properly placed posterior splint was then applied keeping the foot at 90 degrees with respect to the leg to try for any type of postop complications. The patient was then transferred from the OR to recovery room with vital signs stable and neurovascular status intact. No intraoperative complications were encountered. Blood loss from the surgery was minimal. The patient is to remain nonweightbearing with the aid of crutches, keep the foot elevated, and is to apply an ice pack to the ankle joint area. ARDEN Serrano/ZACH /[id number]
== END | disposition home or self-care (01) ==
LOC: OR 05:09
PROVIDERS: ATTEND Podiatrist Foot Surgery
DX: M20.22 Hallux rigidus, left foot (principal); M20.42 Other hammer toe(s) (acquired), left foot; M72.2 Plantar fascial fibromatosis; I10 Essential (primary) hypertension; Z01.810 Encounter for preprocedural cardiovascular examination; Z01.812 Encounter for preprocedural laboratory examination; Z01.818 Encounter for other preprocedural examination
CPT/HCPCS: 28285 ×4; 28296; 29893; 36415; 71046; 73620; 80053; 85025; 85610; 85730; 93005; C1713 ×2; J0690; J0720; J1100; J1885; J2001 ×2; J2250; J2405; J2704; J3010